=== PATIENT | male | born 1955 | race Caucasian/White ===

== ENCOUNTER 2019-03-13 16:52 | Emergency (ER) | payer OTHER ==
--- OUTSIDE RECORDS SUMMARY | 2019-03-13 16:54 | XMS REPORT | Clinical Summary ---
:1955 Author Organization [facility] Address [address] [place] [address] Care Team Providers Name Role Phone Daniel Garcia MD Primary Care Provider Allergies Active Allergy Reactions Severity Noted Date Comments Penicillins 01/13/2019 As a child Medications Medication Sig Dispensed Refills Start Date End Date Status finasteride 0 03/04/2019 Active (PROSCAR) 5 mg tablet doxazosin (CARDURA) Take 2 mg by 1 01/28/2019 Active 2 MG tablet mouth daily. ciprofloxacin Take 1 tablet 14 tablet 0 03/10/2019 03/17/2019 Active (CIPRO) 500 MG (500 mg tablet total) by mouth 2 (two) times a day for 7 days. multivitamin with Take 1 tablet 0 01/20/2019 Discontinued minerals tablet by mouth daily. turmeric (CURCUMIN 750 mg. 0 01/20/2019 Discontinued MISC) finasteride Take 5 mg by 0 01/20/2019 Discontinued (PROSCAR) 5 mg mouth daily. tablet pantoprazole Take 40 mg by 0 01/20/2019 Discontinued (PROTONIX) 40 MG EC mouth tablet nightly. rivaroxaban Take 20 mg by 0 01/20/2019 Discontinued (XARELTO) 20 mg mouth daily. tablet doxazosin (CARDURA) Take 2 mg by 0 01/20/2019 Discontinued 2 MG tablet mouth nightly. Active Problems Not on file Encounters Date Type Specialty Care Team Description 03/10/2019 Surgery Urology Abhilash Clements, CYSTOSCOPY, HOLMIUM LASER OF BLADDER STONES 03/10/2019 Anesthesia Event Urology Santana Kat, 03/10/2019 Hospital Encounter Urology Ho, Abhilash S., Bladder stone 01/14/2019 Hospital Encounter Radiology Abhilash Clements, Preop testing 01/14/2019 Pre-Admit Testing Pre-Admission Abhilash Clements, Preop testing Appointment Testing MD (Primary Dx) after 03/12/2018 Social History Tobacco Use Types Packs/Day Years Used Date Former Smoker Pipe Smokeless Tobacco: Never Used Comments: in college Alcohol Use Drinks/Week oz/Week Comments No Alcohol Habits Answer Date Recorded How often do you have a drink containing alcohol? Never 01/13/2019 How many drinks containing alcohol do you have on a typical Not asked day when you are drinking? How often do you have six or more drinks on one occasion? Not asked Sex Assigned at Date Recorded Not on file Job Start Date Occupation Industry Not on file Not on file Not on file Travel History Travel Start Travel End No recent travel history available. Last Filed Vital Signs Vital Sign Reading Time Taken Blood Pressure 123/69 03/10/2019 1:53 PM CDT Pulse 67 03/10/2019 1:53 PM CDT Temperature 36.1 C (97 F) 03/10/2019 1:53 PM CDT Respiratory Rate 19 03/10/2019 1:53 PM CDT Oxygen Saturation 97% 03/10/2019 1:53 PM CDT Inhaled Oxygen Concentration - - Weight 112 kg (246 lb) 03/10/2019 10:13 AM CDT Height 190.5 cm (6' 3") 03/10/2019 10:13 AM CDT Body Mass Index 30.75 03/10/2019 10:13 AM CDT Plan of Treatment Health Maintenance Due Date Last Done Comments COLON CANCER SCREENING 2005 SHINGLES VACCINES (#1) 2005 INFLUENZA VACCINE 05/27/2019 Procedures Procedure Name Priority Date/Time Associated Comments Diagnosis SURGICAL PATHOLOGY Routine 03/10/2019 1:32 PM Results for this REQUEST CDT procedure are in the results section. CYSTOSCOPY 03/10/2019 12:00 PM Bladder stone CDT Case Notes REQ 1100 START, HOLMIUM LASER Special Needs REQ 1100 START, HOLMIUM LASER ANESTHESIA INTUBATION Routine 03/10/2019 11:55 AM CDT Procedure Note - Kristina Drake CRNA - 03/10/2019 11:55 AM CDT Airway Performed by: Kristina Drake CRNA Authorized by: Santana Kat DO Location: OR Performed by: anesthesiologist Preoxygenated with 100% O2: Yes C-spine Precautions Maintained Throughout: Yes Mask Ventilation: Not attempted Final Airway Type: Supraglottic airway Final LMA: Classic LMA Size: 5 Number of Attempts at Approach: 1 XR CHEST 2 VW Routine 01/14/2019 4:45 PM Preop testing Results for this CDT procedure are in the results section. ECG PRE/POST OP Routine 01/14/2019 3:52 PM Preop testing Results for this CDT procedure are in the results section. ESTIMATED GFR Routine 01/14/2019 3:41 PM Results for this CDT procedure are in the results section. URINALYSIS SCREEN AND Routine 01/14/2019 3:41 PM Preop testing Results for this MICROSCOPY, WITH REFLEX CDT procedure are in TO CULTURE the results section. HEPATIC FUNCTION PANEL Routine 01/14/2019 3:41 PM Preop testing Results for this CDT procedure are in the results section. PROTHROMBIN TIME WITH Routine 01/14/2019 3:41 PM Preop testing Results for this INR CDT procedure are in the results section. PARTIAL THROMBOPLASTIN Routine 01/14/2019 3:41 PM Preop testing Results for this TIME (PTT) CDT procedure are in the results section. HIV AG/AB COMBINATION Routine 01/14/2019 3:41 PM Preop testing Results for this CDT procedure are in the results section. BASIC METABOLIC PANEL Routine 01/14/2019 3:41 PM Preop testing Results for this CDT procedure are in the results section. CBC HEMOGRAM Routine 01/14/2019 3:41 PM Preop testing Results for this CDT procedure are in the results section. URINE CULTURE Routine 01/14/2019 2:58 PM Results for this CDT procedure are in the results section. after 03/12/2018 Results Surgical pathology request (03/10/2019 1:32 PM CDT) [facility] DEPARTMENT OF PATHOLOGY AND GENOMIC MEDICINE Surgical pathology report See link below for PDF [facility] DEPARTMENT OF Lab Report PATHOLOGY AND GENOMIC MEDICINE Result status This is Final Report [facility] for [id number] PATHOLOGY AND GENOMIC MEDICINE Performing Organization Address City/State/Zipcode Phone Number [facility] DEPARTMENT OF PATHOLOGY AND [address] [place] [address] GENOMIC MEDICINE XR Chest 2 Vw (01/14/2019 4:45 PM CDT) Narrative Performed At EXAMINATION:XR CHEST 2 VW [facility] CLINICAL HISTORY:Z01.818 Encounter for other preprocedural examination, preop COMPARISON:July 29, 2015 IMPRESSION: The heart and mediastinum are normal.The pulmonary vessels are normal.Lung hutchinson are clear.There is a calcified granuloma at the right apex. [id number] Procedure Note Hm Interface, Radiology Results Incoming - 01/14/2019 4:51 PM CDT EXAMINATION: XR CHEST 2 VW CLINICAL HISTORY: Z01.818 Encounter for other preprocedural examination, preop COMPARISON: July 29, 2015 IMPRESSION: The heart and mediastinum are normal. The pulmonary vessels are normal. Lung hutchinson are clear. There is a calcified granuloma at the right apex. [facility]-[id number] Performing Organization Address [facility]/Zipcode Phone Number [facility] [address] [place] [address] ECG Pre/Post Op (01/14/2019 3:52 PM CDT) Ventricular rate 61 [facility] Atrial rate 61 [facility] MO interval 196 [facility] QRSD interval 92 [facility] QT interval 394 [facility] QTC interval 396 [facility] P axis 1 70 [facility] QRS axis 1 82 [facility] T wave axis 48 [facility] EKG impression Normal sinus rhythm-Incomplete right bundle [facility] MUSE branch block-Borderline ECG-In automated comparison with ECG of 26-JUL-2015 14:44,-Vent. rate has decreased BY 51 BPM- Narrative Performed At Performing Organization Address City/[facility] Phone Number [facility] M[facility] [address] [place] [address] Urinalysis screen and microscopy, with reflex to culture (01/14/2019 3:41 PM CDT) Specimen site Clean catch [facility] Color, UA Yellow [facility] Appearance, UA Clear [facility] Specific gravity, UA 1.020 1.001 - 1.035 [facility] pH, UA 6.0 5.0 - 8.5 [facility] Protein, UA 1+ (A) Negative [facility] Glucose, UA Negative Negative [facility] Ketones, UA Negative Negative [facility] Bilirubin, UA Negative Negative [facility] Blood, UA Large (A) Negative [facility] Nitrite, UA Negative Negative [facility] Urobilinogen, UA <2.0 <2.0 [facility] Leukocyte esterase, UA Negative Negative [facility] Epithelial cells, UA <1 /HPF [facility] WBC, UA 4 (H) 0 - 1 /HPF [facility] RBC, UA 180 (H) 0 - 5 /HPF [facility] Bacteria, UA Few None seen [facility] Yeast, UA None seen [facility] Yeast with pseudohyphae, UA None seen [facility] Specimen Urine Performing Organization Address City/[facility] Phone Number [facility] DEPARTMENT OF PATHOLOGY AND [address] [place] [phone] Estimated GFR (01/14/2019 3:41 PM CDT) Estimated GFR 62 mL/min/1.73 m2 [facility] Comment: HOSPITAL CatergoryUnitsInterpretation G1 >=90 Normal or high G2 60-89Mildly decreased [id number] to moderately decreased [id number] to severely decreased G4 15-29Severely decreased G5 <15Kidney failure The eGFR was calculated using the Chronic Kidney Disease Epidemiology Collaboration (CKD-EPI) equation. Interpretation is based on recommendations of the National Kidney Foundation-Kidney Disease Outcomes Quality Initiative (NKF-KDOQI) published in 2014. Specimen Plasma specimen Performing Organization Address City/[facility] Phone Number [facility] DEPARTMENT OF PATHOLOGY AND [address] [place] [phone] HIV Ag/Ab combination (01/14/2019 3:41 PM CDT) HIV Ag/Ab combination Non-reactive Non-reactive [facility] Specimen Blood Performing Organization Address City/[facility] Phone Number [facility] DEPARTMENT OF PATHOLOGY AND [address] [place] [id number] [place] [phone] Partial thromboplastin time, activated (01/14/2019 3:41 PM CDT) PTT 34.9 23.0 - 36.0 sec [facility] Comment: PTT therapeutic range for unfractionated heparin is 61.0-112.0 seconds which corresponds to Anti-Xa 0.3-0.7 U/ml. Specimen Blood Performing Organization Address City/[facility] Phone Number [facility] DEPARTMENT OF PATHOLOGY AND [address] [place] [address] Prothrombin time with INR (01/14/2019 3:41 PM CDT) Prothrombin time 17.7 (H) 11.5 - 14.5 sec [facility] INR 1.5 [facility] Comment: HOSPITAL The International Normalized Ratio (INR) is a therapeutic monitoring tool for patients who are stable on oral anticoagulant therapy. An INR of 2.0-3.0 is suggested for deep vein thrombosis/pulmonary embolism. Specimen Blood Performing Organization Address [facility] Phone Number [facility] DEPARTMENT OF PATHOLOGY AND [address] [place] [phone] CBC hemogram (01/14/2019 3:41 PM CDT) WBC 6.25 4.50 - 11.00 k/uL [facility] RBC 4.59 4.40 - 6.00 m/uL [facility] HGB 14.4 14.0 - 18.0 g/dL [facility] HCT 44.8 41.0 - 51.0 % [facility] MCV 97.6 82.0 - 100.0 fL [facility] MCH 31.4 27.0 - 34.0 pg [facility] MCHC 32.1 31.0 - 37.0 g/dL [facility] RDW - SD 48.9 37.0 - 55.0 fL [facility] MPV 10.7 8.8 - 13.2 fL [facility] Platelet count 195 150 - 400 k/uL [facility] Nucleated RBC 0.00 /100 WBC [facility] Specimen Blood Performing Organization Address City/[facility] Phone Number [facility] DEPARTMENT OF PATHOLOGY AND [address] [place] [address] [place] [address] Hepatic function panel (01/14/2019 3:41 PM CDT) Albumin 4.1 3.5 - 5.0 g/dL [facility] Total bilirubin 0.3 0.0 - 1.2 mg/dL [facility] Bilirubin direct <0.2 0.0 - 0.3 mg/dL [facility] Alkaline phosphatase 72 40 - 129 U/L [facility] Protein 7.2 6.3 - 8.3 g/dL [facility] Comment: [place] 4.6-7.0 g/dL 1 week 4.4-7.6 g/dL 7 months-1year5.1-7.3 g/dL 1-2 years5.6-7.5 g/dL >3 years6.0-8.0 g/dL 18-150 6.3-8.3 g/dL ALT 22 5 - 50 U/L [facility] AST 24 10 - 50 U/L [facility] Specimen Plasma specimen Performing Organization Address City/[facility] Phone Number [facility] DEPARTMENT OF PATHOLOGY AND [address] [place], [place] [phone] [address] [address] Basic metabolic panel (01/14/2019 3:41 PM CDT) Sodium 143 135 - 148 mEq/L [facility] Potassium 3.9 3.5 - 5.0 mEq/L [facility] Chloride 106 98 - 112 mEq/L [facility] CO2 26 24 - 31 mEq/L [facility] Anion gap 11@ANIO 7 - 15 mEq/L [facility] BUN 18 8 - 23 mg/dL [facility] Creatinine 1.23 (H) 0.70 - 1.20 mg/dL [facility] Glucose 86 65 - 99 mg/dL [facility] Calcium 9.4 8.8 - 10.2 mg/dL [facility] Specimen Plasma specimen Performing Organization Address City/[facility] Phone Number [facility] DEPARTMENT OF PATHOLOGY AND [address] [place], [place] [phone] [address] [address] Urine culture (01/14/2019 2:58 PM CDT) Urine culture SEE COMMENTComment: Bacteriuria [facility] screen negative. Performing Organization Address City/State/Zipcode Phone Number [facility] DEPARTMENT OF PATHOLOGY AND [address] [place] [address] GENOMIC MEDICINE [facility] [address] [place] [address] after 03/12/2018 Insurance Payer Benefit Plan / Group Subscriber ID Type Phone Address AETNA AETNA HMO,POS,EPO, MC/EC xxxxxxxxxx HMO ([place]) [place] [address] Advance Directives Patient has advance care planning documents on file. For more information, please contact:[facility] [place] [phone]
--- NOTE | 2019-03-13 17:30 | ER ---
Nurse's Notes [facility] Name: Sin Tim Age: 64 yrs Sex: Male : 1955 Arrival Date: 03/13/2019 Time: 16:55 Bed 28 Private MD: Diagnosis: Retention of urine Presentation: 03/13 17:04 Presenting complaint: Patient states: He had a procedure to remove bladder stones on Friday at [facility], was urinating fine until today, has not been able to urinate, spoke with his PCP and surgeon who recommend he go to [facility] but the pt reports not wanting to drive there so he came here. Transition of care: patient was not received from another setting of care. Onset of symptoms was March 13, 2019. Risk Assessment: Do you want to hurt yourself or someone else? Patient reports no desire to harm self or others. Initial Sepsis Screen: Does the patient meet any 2 criteria? No. Patient's initial sepsis screen is negative. Does the patient have a suspected source of infection? No. Patient's initial sepsis screen is negative. Care prior to arrival: None. 17:04 Method Of Arrival: Ambulatory 17:04 Acuity: OBDULIA 3 sg Historical: - Allergies: 17:09 PENICILLINS; sg - PMHx: 17:09 Diverticulitis; Enlarged Prostate; sg - PSHx: 17:09 Uroliths Removed; Flakito Holes in Head x 4; Appendectomy; sg - Immunization history:: Adult Immunizations up to date. - Social history:: Smoking status: Patient/guardian denies using tobacco. - Ebola Screening: : Patient negative for fever greater than or equal to 101.5 degrees Fahrenheit, and additional compatible Ebola Virus Disease symptoms Patient denies exposure to infectious person Patient denies travel to an Ebola-affected area in the 21 days before illness onset No symptoms or risks identified at this time. Screenin:31 Abuse screen: Denies threats or abuse. Denies injuries from another. Nutritional rv screening: No deficits noted. Tuberculosis screening: No symptoms or risk factors identified. Fall Risk None identified. Assessment: 17:30 General: Appears in no apparent distress. uncomfortable, Behavior is calm, cooperative. rv Pain: Denies pain. Neuro: Level of Consciousness is awake, alert, obeys commands, Oriented to person, place, time, situation. Cardiovascular: Patient's skin is warm and dry. Respiratory: Airway is patent. GI: No signs and/or symptoms were reported involving the gastrointestinal system. : Reports incontinence, since LAST NIGHT inability to void, since LAST NIGHT. EENT: No signs and/or symptoms were reported regarding the EENT system. Derm: Skin is intact. Musculoskeletal: No signs and/or symptoms reported regarding the musculoskeletal system. Vital Signs: 17:09 BP 173 / 97; Pulse 79; Resp 17; Temp 97.8; Pulse Ox 97% on R/A; Weight 113.4 kg; Pain sg 8/10; 17:39 BP 123 / 80; Pulse 76; Resp 17; Pulse Ox 98% ; rv ED Course: 16:55 Patient arrived in ED. tw3 16:56 Reji Schmid MD is Attending Physician. 17:02 Logan Chacon RN is Primary Nurse. rv 17:06 Triage completed. sg 17:06 Arm band placed on. sg 17:31 Patient has correct armband on for positive identification. Bed in low position. Call rv light in reach. Side rails up X 1. Adult w/ patient. Pulse ox on. NIBP on. 17:32 No provider procedures requiring assistance completed. Sousa cath inserted, using rv sterile technique, 16 Fr., by ca, balloon inflated, to gravity drainage, returned WITH FRAGMENTS (STONE). Patient tolerated well. Patient did not have IV access during this emergency room visit. Administered Medications: No medications were administered Output: 17:40 Urine: 1000ml (Sousa); Total: 1000ml. rv Outcome: 17:29 Discharge ordered by . 17:33 Discharged to home ambulatory. rv 17:33 Discharged to DISCHARGED WITH SOUSA CATHETER F16 17:33 Condition: improved 17:33 Discharge instructions given to patient, family, Instructed on discharge instructions, follow up and referral plans. [facility] Demonstrated understanding of instructions, follow-up care, [facility] 17:40 Patient left the ED. rv Signatures: John Dexter, RN RN Amilcar, Tia tw3 Reji Schmid MD MD Logan Chacon RN RN rv
--- NOTE | 2019-03-13 17:30 | EDPHYS ---
Physician Documentation [facility] Name: Sin Tim Age: 64 yrs Sex: Male : 1955 Arrival Date: 03/13/2019 Time: 16:55 Bed 28 Private MD: ED Physician Reji Schmid HPI: 03/13 17:23 This 64 yrs old Male presents to ER via Ambulatory with complaints of Urinary gs Retention. 17:23 The patient presents with urinary symptoms, retention, unable to void. Onset: The gs symptoms/episode began/occurred today. Modifying factors: The symptoms are alleviated by nothing, the symptoms are aggravated by nothing. Associated signs and symptoms: Pertinent negatives: fever. Severity of symptoms: At their worst the symptoms were severe, in the emergency department the symptoms are unchanged. The patient has experienced similar episodes in the past, a few times. The patient has been recently seen by a physician:. Historical: - Allergies: 17:09 PENICILLINS; sg - PMHx: 17:09 Diverticulitis; Enlarged Prostate; sg - PSHx: 17:09 Uroliths Removed; Flakito Holes in Head x 4; Appendectomy; sg - Immunization history:: Adult Immunizations up to date. - Social history:: Smoking status: Patient/guardian denies using tobacco. - Ebola Screening: : Patient negative for fever greater than or equal to 101.5 degrees Fahrenheit, and additional compatible Ebola Virus Disease symptoms Patient denies exposure to infectious person Patient denies travel to an Ebola-affected area in the 21 days before illness onset No symptoms or risks identified at this time. ROS: 17:23 All other systems are negative. gs Exam: 17:23 Head/Face: Normocephalic, atraumatic. Eyes: Pupils equal round and reactive to light, gs extra-ocular motions intact. Lids and lashes normal. Conjunctiva and sclera are non-icteric and not injected. Cornea within normal limits. Periorbital areas with no swelling, redness, or edema. ENT: Nares patent. No nasal discharge, no septal abnormalities noted. Tympanic membranes are normal and external auditory canals are clear. Oropharynx with no redness, swelling, or masses, exudates, or evidence of obstruction, uvula midline. Mucous membranes moist. Neck: Trachea midline, no thyromegaly or masses palpated, and no cervical lymphadenopathy. Supple, full range of motion without nuchal rigidity, or vertebral point tenderness. No Meningismus. Chest/axilla: Normal chest wall appearance and motion. Nontender with no deformity. No lesions are appreciated. Cardiovascular: Regular rate and rhythm with a normal S1 and S2. No gallops, murmurs, or rubs. Normal PMI, no JVD. No pulse deficits. Respiratory: Lungs have equal breath sounds bilaterally, clear to auscultation and percussion. No rales, rhonchi or wheezes noted. No increased work of breathing, no retractions or nasal flaring. Back: No spinal tenderness. No costovertebral tenderness. Full range of motion. Skin: Warm, dry with normal turgor. Normal color with no rashes, no lesions, and no evidence of cellulitis. MS/ Extremity: Pulses equal, no cyanosis. Neurovascular intact. Full, normal range of motion. Neuro: Awake and alert, GCS 15, oriented to person, place, time, and situation. Cranial nerves II-XII grossly intact. Motor strength 5/5 in all extremities. Sensory grossly intact. Cerebellar exam normal. Normal gait. 17:23 Constitutional: The patient appears alert, awake. 17:23 Abdomen/GI: Palpation: mass, that is tender, bldder. Vital Signs: 17:09 BP 173 / 97; Pulse 79; Resp 17; Temp 97.8; Pulse Ox 97% on R/A; Weight 113.4 kg; Pain sg 8/10; 17:39 BP 123 / 80; Pulse 76; Resp 17; Pulse Ox 98% ; rv MDM: 17:02 Patient medically screened. gs 17:23 Differential diagnosis: urinary retention. Data reviewed: vital signs, nurses notes. gs Response to treatment: the patient's symptoms have markedly improved after treatment. 03/13 17:03 Order name: [place]; Complete Time: 17:22 gs Administered Medications: No medications were administered Disposition: 03/13/19 17:29 Discharged to Home. Impression: Retention of urine. - Condition is Stable. - Discharge Instructions: Acute Urinary Retention, Male, Avila Catheter Care, Adult, [id number]. - Medication Reconciliation Form, Thank You Letter, Antibiotic Education, Prescription Opioid Use form. - Follow up: Private Physician; When: 2 - 3 days; Reason: Re-evaluation by your physician. Signatures: John Dexter RN RN sg Reji Schmid MD MD gs Logan Chacon RN RN rv Corrections: (The following items were deleted from the chart) 17:40 17:29 03/13/2019 17:29 Discharged to Home. Impression: Retention of urine. Condition is rv Stable. Forms are Medication Reconciliation Form, Thank You Letter, Antibiotic Education, Prescription Opioid Use. Follow up: Private Physician; When: 2 - 3 days; Reason: Re-evaluation by your physician. michael
== END 2019-03-13 17:40 | disposition home or self-care (01) ==
LOC: ER 16:52
DX: R33.9 Retention of urine, unspecified (principal); Z88.0 Allergy status to penicillin
CPT/HCPCS: 51702; 99284

== ENCOUNTER 2024-08-17 09:02 | Day surgery (SDC) | payer OTHER ==
[2024-08-17 09:32] LABS: Absolute Basophils 0.1 K/uL (0-0.5); Absolute Eosinophils 0.2 K/uL (0-0.5); Absolute Lymphocytes (CBC) 1.3 K/uL (0.7-4.9); Absolute Monocytes 0.5 K/uL (0.1-1.3); Absolute Neutrophil 4.9 K/uL (1.8-8.0); Basophils % 1.1 % (0-1.3); Eosinophils % 3.1 % (0-4.4); Hematocrit 42.1 % (39.6-49.0); Hemoglobin 14.2 g/dL (13.6-17.9); Lymphocytes % 18.3 % (15.3-44.8); MCHC 33.7 g/dL (32.0-36.0); MCV 97.9 fL (80-100); MPV 8.6 fL (7.6-11.3); Monocytes % 7.8 % (3.3-12.3); Neutrophils % 69.7 % (41.7-73.7); Nucleated Red Blood Cells % 0.1 % (0-0); Platelets 199 thou/uL (152-406); Red Cell Distribution Width 13.5 % (12.1-15.2)
[2024-08-17 09:45] VITALS: BMI 26.6
[2024-08-17 09:52] LABS: Albumin 3.5 g/dL (3.4-5.0); Albumin/Globulin Ratio 1.1 (1.1-1.8); Anion Gap 7.1 mEq/L (5.0-15.0); Bilirubin Direct 0.2 mg/dL (0-0.2); Bilirubin Indirect, Calculated 0.5 mg/dL (0.2-0.8); Bilirubin Total 0.7 mg/dL (0.2-1.0); Globulin 3.2 g/dL (2.3-3.5); Potassium 4.1 mEq/L (3.5-5.1); Protein, Total 6.7 g/dL (6.4-8.2)
[2024-08-17 10:00] LABS: PT Prothrombin Time 11.6 SECONDS (9.4-12.5); PTT, Activated Partial Thromb 28.4 SECONDS (24.3-36.9); Protime INR 1.04
--- NOTE | 2024-08-17 12:44 | RAD REPORT ---
PROCEDURE: FLUOROSCOPY GUIDED LUMBAR PUNCTURE CLINICAL INDICATION: F03.90, E55.9, D51.9, I62.03 COMPLICATIONS: No immediate complications. PROCEDURE DETAILS: Consent: Informed consent for the procedure including risks, benefits and alternatives was obtained a nd time-out was performed prior to the procedure. Preparation: The patient was positioned prone on the fluoroscopic table. Appropriate area of the back was prepared and draped using all elements of maximal sterile barrier technique including sterile gloves, sterile gown, cap, mask, large sterile sheet, hand hygiene and cutaneous antisepsis with 2% c hlorhexidine. Sedation: No sedation Imaging prior to procedure: 2 views lumbar spine. Procedure: Local anesthesia was administered. Under fluoroscopic guidance, a spinal needle was advanc ed into the subarachnoid space at the level of L3-4. Fluid obtained: 15 cc of clear CSF Opening pressure: Subjectively normal. Fluoroscopy time: 0.4 minutes Estimated blood loss: Less than 10 mL. IMPRESSION: Technically successful fluoroscopic-guided lumbar puncture as detailed.
[2024-08-17 13:02] LABS: CSF Glucose 56 mg/dL (40-70)
[2024-08-17 13:21] LABS: Appearance CLEAR (CLEAR); Body Fluid Source CSF; Body Fluid WBC 0 /mm^3; Color of Supernate Not Xanthochromic (Not Xantho); Color of fluid Colorless (COLORLESS); Tube # #4
[2024-08-17 14:05] VITALS: BP 126/79; TEMP 97.2; O2SAT 100
== END 2024-08-17 13:52 | disposition home or self-care (01) ==
LOC: DS 09:02
PROVIDERS: ATTEND Psychiatry & Neurology Neurology with Special Qualifications in Child Neurology
PROC: 009U3ZX Drainage of Spinal Canal, Percutaneous Approach, Diagnostic (ICD-10-PCS; principal; 2024-08-17)
PROC: B01BZZZ Fluoroscopy of Spinal Cord (ICD-10-PCS; 2024-08-17)
DX: G30.9 Alzheimer's disease, unspecified (principal); R41.3 Other amnesia; E55.9 Vitamin D deficiency, unspecified; D51.9 Vitamin B12 deficiency anemia, unspecified; I62.03 Nontraumatic chronic subdural hemorrhage
CPT/HCPCS: 36415; 77003; 80048; 80076; 82542; 82945; 84157; 85025; 85610; 85730; 89050

== ENCOUNTER 2024-08-18 09:23 | Inpatient (IN) | payer OTHER ==
[2024-08-18] MEDS ORDERED: NA CHLORIDE 0.9% 1,000 ML ONE (09:57)
[2024-08-18 10:19] LABS: Absolute Eosinophils 0.1 K/uL (0-0.5); Absolute Monocytes 0.6 K/uL (0.1-1.3); Absolute Neutrophil 6.9 K/uL (1.8-8.0); Basophils % 0.5 % (0-1.3); Eosinophils % 1.5 % (0-4.4); Hematocrit 46.2 % (39.6-49.0); Hemoglobin 15.1 g/dL (13.6-17.9); Lymphocytes % 11.9 % (15.3-44.8); MCH 32.5 pg (27.0-35.0); MCHC 32.7 g/dL (32.0-36.0); MCV 99.4 fL (80-100); MPV 9.1 fL (7.6-11.3); Monocytes % 7.2 % (3.3-12.3); Neutrophils % 78.9 % (41.7-73.7); Platelets 202 thou/uL (152-406); RBC Red Blood Cell Count 4.65 M/uL (4.33-5.43); Red Cell Distribution Width 13.5 % (12.1-15.2)
[2024-08-18 10:42] LABS: ALT/SGPT 19 U/L (16-61); AST/SGOT 17 U/L (15-37); Albumin 3.5 g/dL (3.4-5.0); Alkaline Phosphatase 79 U/L (45-117); Anion Gap 11.8 mEq/L (5.0-15.0); BUN Blood Urea Nitrogen 21 mg/dL (7-18); Bicarbonate 22 mEq/L (21-32); Bilirubin Total 0.6 mg/dL (0.2-1.0); Globulin 3.5 g/dL (2.3-3.5); Glomerular Filtration Rate 62 ml/min (=/>90); Glucose Level 132 mg/dL (74-106); Lipase 27 U/L (13-75); Magnesium 2.1 mg/dL (1.6-2.4); NT PRO-BNP 669 pg/mL (<125); Potassium 3.8 mEq/L (3.5-5.1); Sodium Level 142 mEq/L (136-145); Troponin High Sensitivity 23.4 pg/mL (<58.9)
[2024-08-18 10:47] LABS: Bilirubin Direct < 0.2 mg/dL (0-0.2); Bilirubin Indirect, Calculated 0.4 mg/dL (0.2-0.8)
--- NOTE | 2024-08-18 10:55 | RAD REPORT ---
EXAM: CT brain without contrast HISTORY: Dizziness;Pain COMPARISON: None TECHNIQUE: Multiple contiguous axial images were obtained and a CT of the brain without contrast. Sag ittal and coronal reformats were performed. FINDINGS:No evidence of hydrocephalus, intracranial hemorrhage, or extra-axial fluid collection. The brain is normal in morphology. The calvarium is intact. The visualized paranasal sinuses and mastoid air cells are essentially clear . IMPRESSION: No evidence of acute intracranial abnormality. EXAM: CT of the cervical spine without contrast HISTORY: Dizziness;Pain COMPARISON: None TECHNIQUE: Multiple contiguous axial images were obtained in a CT of the cervical spine without contr ast. Sagittal and coronal reformats were performed. FINDINGS: The vertebral bodies demonstrate normal height and alignment. No evidence of acute fracture or subluxation.. Up to moderate degenerative changes with uncovertebral joint and facet arthropathy contributing to moderate bony neural foraminal narrowing on the left at C3-4 and C4-5, an d on the right at C5-6. No significant bony central canal stenosis. No prevertebral soft tissue swelling is seen. The posterior facets are well aligned. Normal alignment of the skull base with the cervical spine is seen. 9 mm right apical calcified granuloma. IMPRESSION: No evidence of acute osseous abnormality of the cervical spine. Degenerative changes as above.
--- NOTE | 2024-08-18 11:12 | RAD REPORT ---
EXAMINATION: ONE VIEW CHEST XR CLINICAL INDICATION: Male, 69 years old.,PAIN TECHNIQUE: Frontal chest projection is submitted. Examination is limited by patient positioning and t echnique. COMPARISON: No prior exam. FINDINGS: The lungs are well inflated and clear. No pneumothorax or sizable effusion. The heart is normal in s ize. IMPRESSION: No acute intrathoracic abnormalities.
[2024-08-18 12:01] LABS: PT Prothrombin Time 12.4 SECONDS (9.4-12.5); Protime INR 1.11
--- NOTE | 2024-08-18 13:43 | ER ---
Nurse's Notes [facility] Name: Sin Tim Age: 69 yrs Sex: Male : 1955 Arrival Date: 08/18/2024 Time: : Bed 3 Private MD: Diagnosis: Dizziness and giddiness;Paroxysmal atrial fibrillation-with RVR;Dementia in other diseases classified elsewhere without behavioral disturbance Presentation: 08/18 09:33 Chief complaint: Spouse and/or significant other states: LP done yesterday per Dr. lety Multani , was being tested for Alzheimer's, this morning he was really dizzy and he fell in the shower. 09:33 Acuity: OBDULIA 3 iw 09:34 Coronavirus screen: At this time, the client does not indicate any symptoms associated iw with coronavirus-19. Ebola Screen: No symptoms or risks identified at this time. Initial Sepsis Screen: Does the patient meet any 2 criteria? No. Patient's initial sepsis screen is negative. Does the patient have a suspected source of infection? No. Patient's initial sepsis screen is negative. Risk Assessment: Do you want to hurt yourself or someone else? Patient reports no desire to harm self or others. Onset of symptoms was August 18, 2024. 09:34 Method Of Arrival: Wheelchair iw Historical: - Allergies: 09:35 PENICILLINS; iw - Home Meds: 09:35 finasteride 5 mg oral tablet daily [Active]; fluorouracil 5 % topical cream weekly iw [Active]; donepezil 10 mg oral tablet daily [Active]; - PMHx: 09:35 Diverticulitis; enlarged prostate; iw - Immunization history:: Adult Immunizations up to date. - Infectious Disease History:: Denies. - Social history:: Smoking status: . - Family history:: not pertinent. Screenin:21 [facility] ED Fall Risk Assessment (Adult) History of falling in the last 3 months, hb including since admission No falls in past 3 months (0 pts) Confusion or Disorientation No (0 pts) Intoxicated or Sedated No (0 pts) Impaired Gait No (0 pts) Mobility Assist Device Used No (0 pt) Altered Elimination No (0 pt) Score/Fall Risk Level 0 - 2 = Low Risk Oriented to surroundings, Maintained a safe environment, Educated pt \T\ family on fall prevention, incl call for assistance when getting out of bed. Abuse screen: Denies threats or abuse. Denies injuries from another. Nutritional screening: No deficits noted. Tuberculosis screening: No symptoms or risk factors identified. Assessment: 10:21 General: Appears in no apparent distress. Behavior is calm, cooperative. Pain: Pain hb currently is 5 out of 10 on a pain scale. Neuro: Level of Consciousness is awake, alert, confused, Oriented to person, place, situation. Cardiovascular: Patient's skin is warm and dry. Respiratory: Respiratory effort is even, unlabored, Respiratory pattern is regular, symmetrical. GI: No signs and/or symptoms were reported involving the gastrointestinal system. : No signs and/or symptoms were reported regarding the genitourinary system. EENT: No signs and/or symptoms were reported regarding the EENT system. Derm: Skin is pink, warm \T\ dry. Musculoskeletal: No signs and/or symptoms reported regarding the musculoskeletal system. 11:17 Reassessment: Patient appears in no apparent distress at this time. Patient and/or hb family updated on plan of care and expected duration. Pain level reassessed. Patient is alert, oriented x 3, equal unlabored respirations, skin warm/dry/pink. Patient states symptoms have improved. 11:31 Reassessment: PHLEBOTOMY CONTACTED FOR COAG REDRAW. bp 12:30 Reassessment: Patient appears in no apparent distress at this time. Patient and/or hb family updated on plan of care and expected duration. Pain level reassessed. Patient is alert, oriented x 3, equal unlabored respirations, skin warm/dry/pink. 13:30 Reassessment: Patient appears in no apparent distress at this time. Patient and/or hb family updated on plan of care and expected duration. Pain level reassessed. Patient is alert, oriented x 3, equal unlabored respirations, skin warm/dry/pink. 14:33 Reassessment: Patient appears in no apparent distress at this time. Patient and/or hb family updated on plan of care and expected duration. Pain level reassessed. Patient is alert, oriented x 3, equal unlabored respirations, skin warm/dry/pink. 14:37 Reassessment: REPORT FAXED FOR 401. bp Vital Signs: 09:34 BP 101 / 87; Pulse 67; Resp 16; Temp 97; Pulse Ox 96% ; Weight 96.62 kg; Height 6 ft. 3 iw in. ; 11:16 BP 93 / 69; Pulse 68; Resp 16; Pulse Ox 99% on R/A; hb 13:00 BP 105 / 71; Pulse 67; Resp 15; Pulse Ox 97% on R/A; hb 14:30 BP 111 / 80; Pulse 75; Resp 17; Pulse Ox 95% on R/A; Pain 0/10; hb 09:34 Body Mass Index 26.62 (96.62 kg, 190.5 cm) iw 14:30 Pain Scale: Adult hb ED Course: 09:25 Patient arrived in ED. mr 09:32 Chris Tello MD is Attending Physician. kathrin 09:34 Triage completed. iw 09:37 Arm band placed on. iw 09:40 Client placed on continuous cardiac and pulse oximetry monitoring. NIBP monitoring hb applied. cat dog or other pet groomer on. Pulse ox on. NIBP on. 09:53 CT Head C Spine In Process Unspecified. EDMS 09:55 Mary Mota, ENOCH is Primary Nurse. hb 09:57 XRAY Chest (1 view) In Process Unspecified. EDMS 10:15 Initial lab(s) drawn, by tx, sent to lab. Inserted saline lock: 22 gauge in left hb forearm, using aseptic technique. Blood collected. Flushed with 10 mL NS. 10:21 Patient has correct armband on for positive identification. Provided Education on: use hb of call light . 11:15 EKG done, by ED staff, reviewed by Chris Tello MD. hb 13:28 Urinalysis w/ reflexes Sent. hb 13:41 Dolores Wyatt MD is Hospitalizing Provider. kathrin 14:22 Inserted saline lock: 22 gauge in left forearm, using aseptic technique. Flushed with bp 10 mL NS. 14:37 No provider procedures requiring assistance completed. Patient admitted, IV remains in bp place. 15:01 1501 CM met with and his Malaika at the bedside in the ED exam room. Patient ane identified by name and . Demographic sheet confirmed. Patient states he lives with his in a single story home. He reports that prior to admission, he performs ADLs independently. No DME in the home and no HH, no home oxygen or other medical services. No MPOA in place at this time. Patient's PCP is Dr. Daniel Garcia. Preferred plan is for to return home upon discharge and Malaika states she will be his transportation home. CM team will continue to follow and coordinate care during this hospital stay. Administered Medications: 10:24 Drug: NS 0.9% IV 1000 ml IV at 1 bolus Per protocol; to be given as a bolus over 60 hb minutes Route: IV; Rate: 1 bolus; Site: left forearm; 11:53 Follow up: Response: No adverse reaction; IV Status: Completed infusion; IV Intake: hb 1000ml 14:35 Drug: Enoxaparin Sub-Q 1 mg/kg Sub-Q once Route: Sub-Q; Site: abdomen; hb 14:35 Drug: Famotidine IVP 20 mg IVP once; dilute with 10 mL 0.9% NaCl; give over 2 minutes hb Route: IVP; Site: right forearm; Medication: 10:21 VIS not applicable for this client. hb Intake: 11:53 IV: 1000ml; Total: 1000ml. hb Outcome: 13:42 Decision to Hospitalize by Provider. kathrin 15:23 Patient left the ED. hb Signatures: Dispatcher [employer] EDAZ Chris Tello MD MD cha Rivera, Mary, Reg Reg mr Susan Meehan RN RN iw Baxter, Heather, ENOCH RN Thien Henley, Roz Infante RN, RN RN ling
--- NOTE | 2024-08-18 13:43 | EDPHYS ---
Physician Documentation [facility] Name: Sin Tim Age: 69 yrs Sex: Male : 1955 Arrival Date: 08/18/2024 Time: : Bed 3 Private MD: ED Physician Chris Tello HPI: 08/18 13:35 This 69 yrs old Male presents to ER via Wheelchair with complaints of Dizziness, Fall kathrin Injury. 13:35 The patient presents with dizziness, generalized weakness, lightheadedness. Onset: The kathrin symptoms/episode began/occurred just prior to arrival, this morning. Context: occurred at home, occurred while the patient was walking. Modifying factors: The symptoms are alleviated by nothing, the symptoms are aggravated by nothing. Associated signs and symptoms: The patient has no apparent associated signs or symptoms. Severity of symptoms: At their worst the symptoms were mild moderate in the emergency department the symptoms have improved moderately. Patient's baseline: Neuro: alert and fully oriented. The patient has not experienced similar symptoms in the past. Historical: - Allergies: 09:35 PENICILLINS; iw - Home Meds: 09:35 finasteride 5 mg oral tablet daily [Active]; fluorouracil 5 % topical cream weekly iw [Active]; donepezil 10 mg oral tablet daily [Active]; - PMHx: 09:35 Diverticulitis; enlarged prostate; iw - Immunization history:: Adult Immunizations up to date. - Infectious Disease History:: Denies. - Social history:: Smoking status: . - Family history:: not pertinent. ROS: 13:35 Constitutional: Negative for fever, chills, and weight loss, Eyes: Negative for injury, kathrin pain, redness, and discharge, ENT: Negative for injury, pain, and discharge, Neck: Negative for injury, pain, and swelling, Respiratory: Negative for shortness of breath, cough, wheezing, and pleuritic chest pain, Abdomen/GI: Negative for abdominal pain, nausea, vomiting, diarrhea, and constipation, Back: Negative for injury and pain, : Negative for injury, bleeding, discharge, and swelling, MS/Extremity: Negative for injury and deformity, Skin: Negative for injury, rash, and discoloration, Neuro: Negative for headache, weakness, numbness, tingling, and seizure, Psych: Negative for depression, anxiety, suicide ideation, homicidal ideation, and hallucinations, Allergy/Immunology: Negative for hives, rash, and allergies, Endocrine: Negative for neck swelling, polydipsia, polyuria, polyphagia, and marked weight changes, Hematologic/Lymphatic: Negative for swollen nodes, abnormal bleeding, and unusual bruising, 13:35 Cardiovascular: Positive for palpitations, 13:35 Neuro: Positive for dizziness, Exam: 13:35 Constitutional: This is a well developed, well nourished patient who is awake, alert, kathrin and in no acute distress. Head/Face: Normocephalic, atraumatic. Eyes: Pupils equal round and reactive to light, extra-ocular motions intact. Lids and lashes normal. Conjunctiva and sclera are non-icteric and not injected. Cornea within normal limits. Periorbital areas with no swelling, redness, or edema. ENT: Nares patent. No nasal discharge, no septal abnormalities noted. Tympanic membranes are normal and external auditory canals are clear. Oropharynx with no redness, swelling, or masses, exudates, or evidence of obstruction, uvula midline. Mucous membranes moist. Neck: Trachea midline, no thyromegaly or masses palpated, and no cervical lymphadenopathy. Supple, full range of motion without nuchal rigidity, or vertebral point tenderness. No Meningismus. Chest/axilla: Normal chest wall appearance and motion. Nontender with no deformity. No lesions are appreciated. Respiratory: Lungs have equal breath sounds bilaterally, clear to auscultation and percussion. No rales, rhonchi or wheezes noted. No increased work of breathing, no retractions or nasal flaring. Abdomen/GI: Soft, non-tender, with normal bowel sounds. No distension or tympany. No guarding or rebound. No evidence of tenderness throughout. Back: No spinal tenderness. No costovertebral tenderness. Full range of motion. Male : Normal genitalia with no discharge or lesions. Skin: Warm, dry with normal turgor. Normal color with no rashes, no lesions, and no evidence of cellulitis. MS/ Extremity: Pulses equal, no cyanosis. Neurovascular intact. Full, normal range of motion. Neuro: Awake and alert, GCS 15, oriented to person, place, time, and situation. Cranial nerves II-XII grossly intact. Motor strength 5/5 in all extremities. Sensory grossly intact. Cerebellar exam normal. Normal gait. Psych: Awake, alert, with orientation to person, place and time. Behavior, mood, and affect are within normal limits. 13:35 Cardiovascular: Rate: tachycardic, actual rate is 111 bpm, Rhythm: irregularly irregular, Pulses: Pulses are 4+ in bilateral radial, brachial, femoral, popliteal, posterior tibial and and dorsalis pedis arteries.. Heart sounds: normal, Edema: is not appreciated, JVD: is not appreciated, 13:35 ECG was reviewed by the Attending Physician. Vital Signs: 09:34 BP 101 / 87; Pulse 67; Resp 16; Temp 97; Pulse Ox 96% ; Weight 96.62 kg; Height 6 ft. 3 iw in. ; 11:16 BP 93 / 69; Pulse 68; Resp 16; Pulse Ox 99% on R/A; hb 13:00 BP 105 / 71; Pulse 67; Resp 15; Pulse Ox 97% on R/A; hb 14:30 BP 111 / 80; Pulse 75; Resp 17; Pulse Ox 95% on R/A; Pain 0/10; hb 09:34 Body Mass Index 26.62 (96.62 kg, 190.5 cm) iw 14:30 Pain Scale: Adult hb MDM: 09:32 Medical Screening Exam initiated kathrin 13:38 Differential diagnosis: cardiac arrhythmia, CVA, generalized weakness, GI bleed, kathrin hypovolemia, idiopathic dizziness, near-syncope, , TIA, vertigo. Data reviewed: vital signs, nurses notes, lab test result(s), EKG, radiologic studies, CT scan, plain films. Consideration of Admission/Observation Patient was admitted/placed on observation. Escalation of care including admission/observation considered. I considered the following discharge prescriptions or medication management in the emergency department Medications were administered in the Emergency Department. See MAR. Independent interpretation of the following test(s) in the Emergency Department EKG: See my EKG interpretation above. Test considered but Not performed: Ultrasound no 2 d echo with doppler. Historians other than the Patient: Spouse/Significant Other: well informed. Care significantly affected by the following chronic conditions: bph, diverticulitis, dementia. 08/18 09:33 Order name: Basic Metabolic Panel; Complete Time: 11:20 kathrin 08/18 09:33 Order name: CBC with Diff; Complete Time: 11:20 kathrin 08/18 09:33 Order name: LFT's; Complete Time: 11:20 08/18 09:33 Order name: Magnesium; Complete Time: 11:20 08/18 09:33 Order name: NT PRO-BNP; Complete Time: 11:20 kathrin 08/18 09:33 Order name: PT-INR; Complete Time: 13:34 08/18 09:33 Order name: Troponin HS; Complete Time: 11:20 08/18 09:33 Order name: Urinalysis w/ reflexes kathrin 08/18 09:33 Order name: Lipase; Complete Time: 11:20 kathrin 08/18 11:20 Order name: TSH; Complete Time: 13:34 kathrin 08/18 14:02 Order name: Urine Culture EDMS 08/18 14:22 Order name: CBC with Automated Diff EDMS 08/18 14:22 Order name: CBC with Automated Diff EDMS 08/18 14:22 Order name: CBC with Automated Diff EDMS 08/18 14:22 Order name: CBC with Automated Diff EDMS 08/18 14:22 Order name: Comprehensive Metabolic Panel EDMS 08/18 14:22 Order name: Comprehensive Metabolic Panel EDMS 08/18 14:22 Order name: Comprehensive Metabolic Panel EDMS 08/18 14:22 Order name: Comprehensive Metabolic Panel EDMS 08/18 14:22 Order name: Lipid Profile EDMS 08/18 14:22 Order name: Lipid Profile EDMS 08/18 14:22 Order name: Magnesium EDMS 08/18 14:22 Order name: Magnesium EDMS 08/18 14:22 Order name: Magnesium EDMS 08/18 14:22 Order name: Magnesium EDMS 08/18 14:22 Order name: Troponin High Sensitivity EDMS 08/18 14:22 Order name: Troponin High Sensitivity EDMS 08/18 14:22 Order name: Troponin High Sensitivity EDMS 08/18 09:33 Order name: XRAY Chest (1 view); Complete Time: 11:20 kathrin 08/18 09:33 Order name: CT Head C Spine; Complete Time: 11:20 kathrin 08/18 13:35 Order name: Echo w/ Doppler kathrin 08/18 14:22 Order name: Carotid Artery Bilateral EDIL 08/18 09:33 Order name: EKG; Complete Time: 09:33 kathrin 08/18 13:35 Order name: EKG; Complete Time: 13:36 kathrin 08/18 14:22 Order name: CONS Physician Consult EDMS 08/18 09:33 Order name: Cardiac monitoring; Complete Time: 10:25 [facility] 08/18 09:33 Order name: EKG - Nurse/Tech; Complete Time: 11:15 [facility] 08/18 09:33 Order name: IV Saline Lock; Complete Time: 10:25 [facility] 08/18 09:33 Order name: Labs collected and sent; Complete Time: 10:25 [facility] 08/18 09:33 Order name: O2 Per Protocol; Complete Time: 10:25 [facility] 08/18 09:33 Order name: O2 Sat Monitoring; Complete Time: 10:25 [facility] 08/18 10:26 Order name: Labs - recollect needed: recollect blue top; Complete Time: 10:56 bd 08/18 11:23 Order name: Labs - recollect needed: recollect blue top again; Complete Time: 11:53 08/18 13:35 Order name: EKG - Nurse/Tech; Complete Time: 14:07 [facility] 08/18 14:23 Order name: EKG - Nurse/Tech: repeat EKG iw EC:35 Rate is 111 beats/min. Rhythm is irregularly irregular. QRS [place] is Normal. IN interval kathrin is normal. QRS interval is normal. QT interval is normal. No Q waves. T waves are Normal. No ST changes noted. Clinical impression: Atrial Fibrillation and No evidence of ischemia. Interpreted by me. Reviewed by me. Administered Medications: 10:24 Drug: NS 0.9% IV 1000 ml IV at 1 bolus Per protocol; to be given as a bolus over 60 hb minutes Route: IV; Rate: 1 bolus; Site: left forearm; 11:53 Follow up: Response: No adverse reaction; IV Status: Completed infusion; IV Intake: hb 1000ml 14:35 Drug: Enoxaparin Sub-Q 1 mg/kg Sub-Q once Route: Sub-Q; Site: abdomen; hb 14:35 Drug: Famotidine IVP 20 mg IVP once; dilute with 10 mL 0.9% NaCl; give over 2 minutes hb Route: IVP; Site: right forearm; Disposition Summary: 08/18/24 13:42 Hospitalization Ordered Notes: Hospitalization Status: Observation kathrin Provider: Dolores Wyatt cha Location: Telemetry/[facility] (observation) kathrin Condition: Fair kathrin Problem: new kathrin Symptoms: have improved kathrin Bed/Room Type: Standard kathrin Room Assignment: 401(08/18/24 14:31) bd Diagnosis - Dizziness and giddiness kathrin - Paroxysmal atrial fibrillation - with RVR kathrin - Dementia in other diseases classified elsewhere without behavioral disturbance kathrin Forms: - Medication Reconciliation Form kathrin - SBAR form kathrin - Leadership Thank You Letter kathrin Signatures: Dispatcher [employer] EDMS Fauzia Alves Corey, MD MD cha Williams, Irene, RN RN Mary Mota RN RN Corrections: (The following items were deleted from the chart) 14:31 13:42 kathrin bd
--- NOTE | 2024-08-18 13:48 | P.HP ---
Certification for Inpatient Patient admitted to: Inpatient With expected LOS: >2 Midnights Patient will require the following post-hospital care: None Practitioner: I am a practitioner with admitting privileges, knowledge of patient current condition, hospital course, and medical plan of care. Services: Services provided to patient in accordance with Admission requirements found in Title 42 Section 412.3 of the Code of Federal Regulations <Rochelle Lees - Last Filed: 08/18/24 19:36> Patient History Date of Service: 08/18/24 Reason for admission: Paroxysmal A-fib with RVR, dizziness status post LP History of Present Illness: Mr. Tim is a 69-year-old gentleman with a past medical history of BPH, diverticulitis, and is currently being evaluated for early onset dementia by Dr. Multani. He underwent an LP yesterday. To his knowledge he has never had hypertension, palpitations, or an irregular heartbeat. Of note, on arrival to the emergency department his EKG showed A-fib with RVR at a rate of 101, but after 1 L of fluid he converted to normal sinus rhythm with a rate of 68. The emergency room physician was concerned for paroxysmal A-fib. However, Mr. Tim and his state that he was doing well after the LP yesterday went to sleep and on arising this morning he had a headache and got very lightheaded and nauseous. He states he felt better when he laid down. His gives me a history of a subdural hematoma in 1994 necessitating four brian holes. In 2014, he had a pulmonary embolism and was on blood thinners until 2016 when they were stopped for a bladder stone procedure. He just recently started taking a low-dose aspirin daily at Dr. Multani's recommendation. Secondary to the LP yesterday, aspirin was stopped 1 week prior. We will admit him for close monitoring on telemetry with consultation to cardiology and neurology. I will place him on low-dose Lovenox until any rhythm change. In the meantime we will hydrate him, offer Fioricet as needed headache, and continue a near syncope evaluation. In case of spinal headache and need for a blood patch, after hydration and treatment of his headache we will reevaluate the need for any immediate anticoagulation. Home medications list reviewed: Yes - Past Medical/Surgical History Has patient received pneumonia vaccine in the past: Yes -: BPH -: Subdural hematoma -: PE -: Bladder stones -: Early onset dementia -: Spray hole for subdural -: Bladder stone removal -: Appendectomy Psychosocial/ Personal History: Lives at home with his . In asking his history he said that his parents both have had CVAs, he states his dad passed 3 weeks ago. His gently reminded him that it was 33 years ago. She appears exhausted and when asked if this is his usual mentation, she said yes - Social History Smoking Status: Never smoker Alcohol use: No CD- Drugs: No Caffeine use: Yes Place of Residence: Home <Ivelisse Leeswander Maher - Last Filed: 08/18/24 19:36> Date of Service: 08/19/24 <Dolores Wyatt - Last Filed: 08/19/24 09:50> Allergies Penicillins Allergy (Verified 08/17/24 09:46) Hives/Rash Home Medications: Aspirin 81 mg PO DAILY 08/17/24 Donepezil HCl 10 mg PO DAILY 08/17/24 Finasteride [Proscar] 5 mg PO DAILY 08/17/24 Mv-Min/Folic/K1/Lycopen/Lutein [Centrum Men 50 Plus Minis Tab] 1 tab PO DAILY 08/17/24 Review of Systems 10-point ROS is otherwise unremarkable General: Weakness, Malaise Eyes: Unremarkable ENT: Unremarkable Respiratory: SOB with Excertion (Sometimes) Cardiovascular: Light Headedness, As per HPI Gastrointestinal: Nausea Genitourinary: As per HPI Musculoskeletal: Unremarkable Integumentary: Unremarkable Neurological: As per HPI Lymphatics: Unremarkable <Rochelle Lees Gunnar - Last Filed: 08/18/24 19:36> Physical Examination - Physical Exam General: Alert, In no apparent distress, Cooperative, Confused HEENT: Atraumatic, Normocephalic Neck: Supple Respiratory: Normal air movement Cardiovascular: No edema Capillary refill: <2 Seconds Gastrointestinal: Normal bowel sounds Musculoskeletal: No clubbing Integumentary: No rashes Neurological: Normal speech, Normal tone, Other (Forgetful, mistates timeframe), Abnormal affect Lymphatics: No axilla or inguinal lymphadenopathy External genitalia: Deferred Rectal: Deferred - Studies Laboratory Data (last 24 hrs) 08/18/24 08/18/24 08/18/24 11:46 10:12 10:12 WBC 8.70 Hgb 15.1 Hct 46.2 Plt Count 202 PT 12.4 INR 1.11 Sodium 142 Potassium 3.8 BUN 21 H Creatinine 1.25 Glucose 132 H Magnesium 2.1 Total Bilirubin 0.6 AST 17 ALT 19 Alkaline Phosphatase 79 Lipase 27 <Rochelle Lees - Last Filed: 08/18/24 19:36> - Studies Laboratory Data (last 24 hrs) 08/18/24 08/18/24 08/18/24 11:46 10:12 10:12 WBC 8.70 Hgb 15.1 Hct 46.2 Plt Count 202 PT 12.4 INR 1.11 Sodium 142 Potassium 3.8 BUN 21 H Creatinine 1.25 Glucose 132 H Magnesium 2.1 Total Bilirubin 0.6 AST 17 ALT 19 Alkaline Phosphatase 79 Lipase 27 <Dolores Wyatt C - Last Filed: 08/19/24 09:50> Assessment and Plan - Plan A-fib with RV- new onset Resolved status post 1 L normal saline bolus; repeat EKG 40 mg Lovenox subcu daily Telemetry Consult cardiology Echo Carotid Doppler Orthostatics Monitor electrolytes Headache/lightheadedness possibly related to LP Hydration Fioricet as needed Consult Dr. Multani Neurochecks every 4 Fall precautions Skin protection measures BPH/dementia Continue usual medication VTE/GI prophylaxis Discharge Plan: Home Plan to discharge in: 48 Hours - Advance Directives Does patient have a Living Will: No Does patient have a Durable POA for Healthcare: No - Code Status/Comfort Care Code Status Assessed: Yes Code Status: Full Code <Rochelle Lees - Last Filed: 08/18/24 19:36> Physician Review Additional Text: Pt seen and examined. I agree with the note by the GREEN [employer] TRAINER. Pt is a 69 yo male with past medical history of diverticulitis and enlarged prostate who presents with dizziness, generalized weakness, and lightheadedness that started this am. Of note, pt had lumbar puncture yesterday. On admission, EKG shows A. fib with RVR. Lab studies show wbc 8.7, hgb 15.1. k 3.8, Cr 1.25. At bedside, pt is in NAD. A/P: A.Fib with RVR: resolved. Now in NSR. Will continue telemetry and aspirin. Will hold metoprolol for now. Consulted Cardiology. Headache: Likely due to the lumbar puncture. Will give fioricet. Consulted neurology. BPH: Will continue Flomax DVT ppx: SCD Code: full <Dolores Wyatt - Last Filed: 08/19/24 09:50>
[2024-08-18 13:58] LABS: Calcium Oxalate Crystals- Ur Moderate /HPF (None Seen); Specific Gravity 1.021 (1.005-1.030); Transitional Epithelial <5 /HPF (None Seen); Urine Bacteria None Seen /HPF (<20); Urine Bilirubin NEGATIVE (Negative); Urine Blood 2+ (Negative); Urine Clarity Extremely Turbid (Clear); Urine Color Yellow (Yellow); Urine Culture Reflex Order REFLEXED; Urine Glucose NEGATIVE (Negative); Urine Ketones 1+ (Negative); Urine Microscopic Reflex YN ORDER UMIC; Urine Mucus 4+ /HPF (None Seen); Urine Nitrite NEGATIVE (Negative); Urine Protein 1+ (Negative); Urine RBC >50 /HPF (None Seen); Urine Urobilinogen Normal (Normal); Urine WBC 20-50 /HPF (<5)
[2024-08-18] MEDS ORDERED: FAMOTIDINE 20 MG/2 ML VIAL IV ONE (14:28)
[2024-08-18] MEDS ORDERED: ENOXAPARIN 100 MG/ML SYR SQ ONE (14:28)
[2024-08-18] MEDS ORDERED: ACETAMIN/CAFFEINE/BUTALB TAB PO PRN (15:23)
[2024-08-18] MEDS ORDERED: FLU (Fluarix Triv) TS24-25(6MOS UP)/PF 45 MCG/0.5 ML Syringe IM ONE (16:30)
[2024-08-18 16:35] VITALS: BMI 25.9
[2024-08-18] MEDS: DONEPEZIL HCL 5 MG TAB PO SCH (21:31)
[2024-08-18] MEDS: NA CHLORIDE 0.9% 1,000 ML IV SCH (21:31)
[2024-08-18 21:55] VITALS: O2SAT 97
--- NOTE | 2024-08-18 22:16 | RAD REPORT ---
EXAMINATION: US CAROTID DUPLEX CLINICAL INDICATION: Dizziness TECHNIQUE: Real-time grayscale, color flow and spectral Doppler sonographic images were obtained of [facility] extracranial carotid system using a linear transducer. COMPARISON: 2016. FINDINGS: The velocity of the right internal carotid artery 81 cm/s The right ICA/CCA ratio 1.7 The velocity left internal carotid artery 81 cm/s The left ICA/CCA ratio normal Moderate soft plaque is present within the carotid bulbs bilaterally. Vertebral arteries demonstrate anterograde flow. No significant abnormality external carotid arteries Methods for NASCET criteria: mild stenosis, 0% to 49%; moderate, 50% to 69%; severe stenosis, 70% to 99% IMPRESSION: Moderate soft plaque within the carotid bulbs bilaterally appear to result in approximately 50-55% st enosis
[2024-08-19 06:46] LABS: Absolute Basophils 0.1 K/uL (0-0.5); Absolute Eosinophils 0.3 K/uL (0-0.5); Absolute Lymphocytes (CBC) 1.8 K/uL (0.7-4.9); Absolute Monocytes 0.8 K/uL (0.1-1.3); Absolute Neutrophil 2.8 K/uL (1.8-8.0); Basophils % 0.9 % (0-1.3); Eosinophils % 4.7 % (0-4.4); Hemoglobin 12.7 g/dL (13.6-17.9); MCH 32.9 pg (27.0-35.0); MCHC 33.5 g/dL (32.0-36.0); MCV 98.4 fL (80-100); MPV 9.8 fL (7.6-11.3); Monocytes % 13.6 % (3.3-12.3); Neutrophils % 48.8 % (41.7-73.7); Nucleated Red Blood Cells % 0.1 % (0-0); Platelets 162 thou/uL (152-406); RBC Red Blood Cell Count 3.86 M/uL (4.33-5.43); Red Cell Distribution Width 13.4 % (12.1-15.2)
--- NOTE | 2024-08-19 06:52 | ECHO ---
HEIGHT: 6 ft 4 in WEIGHT: 213 lb 0 oz DATE OF STUDY: 08/18/[address]: Chris Tello MD 2-DIMENSIONAL: YES M.MODE: YES DOPPLER: YES COLOR FLOW: YES TDS: PORTABLE: YES DEFINITY: BUBBLE STUDY: DIAGNOSIS: ATRIAL FIBRILLATION CARDIAC HISTORY: CATHERIZATION: SURGERY: PROSTHETIC VALVE: PACEMAKER: MEASUREMENTS (cm) DIASTOLIC (NORMALS) SYSTOLIC (NORMALS) IVSd 1.0 (0.6-1.2) LA Diam 2.9 (1.9-4.0) LVEF 60-65% LVIDd 4.1 (3.5-5.7) LVIDs 2.4 (2.0-3.5) %FS LVPWd 1.0 (0.6-1.2) Ao Diam 3.6 (2.0-3.7) 2 DIMENSIONAL ASSESSMENT: RIGHT ATRIUM: NORMAL LEFT ATRIUM: NORMAL RIGHT VENTRICLE: NORMAL LEFT VENTRICLE: NORMAL TRICUSPID VALVE: NORMAL MITRAL VALVE: NORMAL PULMONIC VALVE: NORMAL AORTIC VALVE: NORMAL PERICARDIAL EFFUSION: NONE AORTIC ROOT: NORMAL LEFT VENTRICULAR WALL MOTION: NORMAL DOPPLER/COLOR FLOW: NORMAL COMMENTS: 1. NORMAL LEFT VENTRICULAR SYSTOLIC FUNCTION, EJECTION FRACTION 60-65%, NORMAL WALL MOTION 2. NORMAL DIASTOLIC FUNCTION TECHNOLOGIST: SHANA RASCON
[2024-08-19 07:12] LABS: Albumin/Globulin Ratio 1.1 (1.1-1.8); Anion Gap 8.3 mEq/L (5.0-15.0); Bilirubin Total 0.6 mg/dL (0.2-1.0); Globulin 2.8 g/dL (2.3-3.5); Potassium 4.3 mEq/L (3.5-5.1); Protein, Total 5.8 g/dL (6.4-8.2); Troponin High Sensitivity 41.7 pg/mL (<58.9)
[2024-08-19] MEDS: FINASTERIDE 5 MG TAB PO SCH (08:45)
[2024-08-19] MEDS: ENOXAPARIN 40 MG/0.4 ML SQ SCH (08:45)
--- NOTE | 2024-08-19 11:58 | P.CNS ---
Date of Consult: 08/19/24 Chief Complaint: Paroxysmal A-fib with RVR, dizziness status post LP History of Present Illness: Patient with history of suspected early onset dementia, presented with weakness, headache and palpitations after recent LP, denies chest pain, no SOB, no PORTER, no syncope. Allergies Penicillins Allergy (Verified 08/17/24 09:46) Hives/Rash Home medications list reviewed: Yes Home Medications: Aspirin 81 mg PO DAILY 08/17/24 Donepezil HCl 10 mg PO DAILY 08/17/24 Finasteride [Proscar] 5 mg PO DAILY 08/17/24 Mv-Min/Folic/K1/Lycopen/Lutein [Centrum Men 50 Plus Minis Tab] 1 tab PO DAILY 08/17/24 - Past Medical/Surgical History Diabetic: No -: BPH -: Subdural hematoma -: PE -: Bladder stones -: Early onset dementia -: Ambler hole for subdural -: Bladder stone removal -: Appendectomy Psychosocial/ Personal History: Lives at home with his . In asking his history he said that his parents both have had CVAs, he states his dad passed 3 weeks ago. His gently reminded him that it was 33 years ago. She appears exhausted and when asked if this is his usual mentation, she said yes - Social History Alcohol use: No CD- Drugs: No Caffeine use: Yes Place of Residence: Home Review of Systems 10-point ROS is otherwise unremarkable Physical Examination Temp Pulse Resp BP Pulse Ox 98.8 F 71 14 140/81 98 08/19/24 08:00 08/19/24 08:00 08/19/24 08:00 08/19/24 08:00 08/19/24 08:00 General: Alert, In no apparent distress HEENT: Atraumatic, PERRLA, Mucous membr. moist/pink, EOMI, Sclerae nonicteric Neck: Supple, 2+ carotid pulse no bruit, No LAD, Without JVD or thyroid abnormality Respiratory: Clear to auscultation bilaterally, Normal air movement Cardiovascular: Regular rate/rhythm, Normal S1 S2 Gastrointestinal: Normal bowel sounds, No tenderness Musculoskeletal: No tenderness Integumentary: No rashes Neurological: Normal gait, Normal speech, Normal tone, Normal affect Lymphatics: No axilla or inguinal lymphadenopathy Laboratory Data (last 24 hrs) 08/18/24 11:46 PT 12.4 INR 1.11 - Problems (1) Atrial fibrillation Current Visit: Yes Status: Acute Plan: Patient had a short episode of AF, now in sinus rhythm, prior MRI shows cerebe llar stroke Toprol XL 25 mg daily Xarelto 20 mg daily outpatient follow up for event monitor
--- NOTE | 2024-08-19 12:17 | EKG ---
Test Date: 2024-08-18 Test Time: 11:12:46 Retail Shift Leader: PETER MEASUREMENT RESULTS: Intervals: Rate: 111 [place]: QRSD: 76 QT: 282 QTc: 383 [place]: P: [place]: QRS: 79 T: 62 INTERPRETIVE STATEMENTS: Atrial fibrillation with rapid ventricular response Abnormal ECG Compared to ECG 10/30/2001 11:33:00 Sinus rhythm no longer present Electronically Signed On 08-19-24 12:14:28 CDT by Farshad Figueroa
--- NOTE | 2024-08-19 12:27 | P.DS ---
Admission Date: 08/18/24 Discharge Date: 08/19/24 Disposition: ROUTINE DISCHARGE Discharge Condition: GOOD Reason for Admission: Paroxysmal A-fib with RVR, dizziness status post LP Brief History of Present Illness: Mr. Tim is a 69-year-old gentleman with a past medical history of BPH, diverticulitis, and is currently being evaluated for early onset dementia by Dr. Multani. He underwent an LP yesterday. To his knowledge he has never had hypertension, palpitations, or an irregular heartbeat. Of note, on arrival to the emergency department his EKG showed A-fib with RVR at a rate of 101, but after 1 L of fluid he converted to normal sinus rhythm with a rate of 68. The emergency room physician was concerned for paroxysmal A-fib. However, Mr. Tim and his state that he was doing well after the LP yesterday went to sleep and on arising this morning he had a headache and got very lightheaded and nauseous. He states he felt better when he laid down. His gives me a history of a subdural hematoma in 1994 necessitating four brian holes. In 2014, he had a pulmonary embolism and was on blood thinners until 2017 when they were stopped for a bladder stone procedure. He just recently started taking a low-dose aspirin daily at Dr. Multani's recommendation. Secondary to the LP yesterday, aspirin was stopped 1 week prior. We will admit him for close monitoring on telemetry with consultation to cardiology and neurology. I will place him on low-dose Lovenox until any rhythm change. In the meantime we will hydrate him, offer Fioricet as needed headache, and continue a near syncope evaluation. In case of spinal headache and need for a blood patch, after hydration and treatment of his headache we will reevaluate the need for any immediate anticoagulation. Hospital Course: Pt is a 69 yo male with past medical history of diverticulitis and enlarged prostate who presented with dizziness, generalized weakness, and lightheadedness that started on the day of admission. Of note, pt had lumbar puncture the day before this admission. He also complained of headache. On admission, EKG showed A. fib with RVR. Lab studies showed wbc 8.7, hgb 15.1. k 3.8, Cr 1.25. We ad mitted pt for A.Fib with RVR. Pt converted to normal sinus rhythm upon admission. We continued telemetry, aspirin and consulted Cardiology. Cardiology evaluated pt and recommended metoprolol Xl 25mg po daily and xarelto. We also gave prn fioricet for post lumbar puncture headache. I talked to the neurologist, Dr. Multani who recommended magnesium oxide for the headache. Pt was advised to follow up with Neurology in clinic for further evaluation if the headache continued. Cardiology advised pt to follow up in clinic for event monitor. Pt was in NAD prior to discharge. Vital Signs/Physical Exam: Temp Pulse Resp BP Pulse Ox 98.8 F 71 14 140/81 98 08/19/24 08:00 08/19/24 08:00 08/19/24 08:00 08/19/24 08:00 08/19/24 08:00 Laboratory Data at Discharge: WBC 5.70 thou/uL (4.3-10.9) 08/19/24 05:34 Hgb 12.7 g/dL (13.6-17.9) L D 08/19/24 05:34 Hct 38.0 % (39.6-49.0) L 08/19/24 05:34 Plt Count 162 thou/uL (152-406) 08/19/24 05:34 PT 12.4 SECONDS (9.4-12.5) 08/18/24 11:46 INR 1.11 08/18/24 11:46 Sodium 142 mEq/L (136-145) 08/19/24 05:34 Potassium 4.3 mEq/L (3.5-5.1) D 08/19/24 05:34 BUN 20 mg/dL (7-18) H 08/19/24 05:34 Creatinine 1.01 mg/dL (0.70-1.30) 08/19/24 05:34 Glucose 88 mg/dL (74-106) 08/19/24 05:34 Magnesium 2.0 mg/dL (1.6-2.4) 08/19/24 05:34 Total Bilirubin 0.6 mg/dL (0.2-1.0) 08/19/24 05:34 AST 13 U/L (15-37) L 08/19/24 05:34 ALT 17 U/L (16-61) 08/19/24 05:34 Alkaline Phosphatase 62 U/L (45-117) D 08/19/24 05:34 Triglycerides 76 mg/dL (<150) 08/19/24 05:34 Cholesterol 141 mg/dL (<200) 08/19/24 05:34 HDL Cholesterol 35 mg/dL (40-60) L 08/19/24 05:34 Cholesterol/HDL Ratio 4.03 08/19/24 05:34 Lipase 27 U/L (13-75) 08/18/24 10:12 Home Medications: Aspirin 81 mg PO DAILY 08/17/24 Donepezil HCl 10 mg PO DAILY 08/17/24 Finasteride [Proscar*] 5 mg PO DAILY 08/17/24 Mv-Min/Folic/K1/Lycopen/Lutein [Centrum Men 50 Plus Minis Tab] 1 tab PO DAILY 08/17/24 Magnesium Oxide 400 mg PO DAILY PRN 7 Days #7 tab 08/19/24 Metoprolol Succinate 25 mg PO DAILY 30 Days #30 tab 08/19/24 Rivaroxaban [Xarelto] 20 mg PO DAILY 60 Days #60 tab 08/19/24 New Medications: Magnesium Oxide 400 mg PO DAILY PRN 7 Days #7 tab PRN Reason: Pain Scale 2-4 (Mild) Metoprolol Succinate 25 mg PO DAILY 30 Days #30 tab Rivaroxaban [Xarelto] 20 mg PO DAILY 60 Days #60 tab Physician Discharge Instructions: Continue ad rosalva activity as tolerated. Take metoprolol, xarelto and magnesium oxide as prescribed. Follow up with Dr. Multani within a week if the headache persists. Follow up with PCP and cardiology within 1 - 2 weeks in clinic. FOllow up with cardiology in clinic for event monitor. Followup: Daniel Garcia MD [Primary Care Provider] -
[2024-08-19 12:29] VITALS: BP 129/74; TEMP 98.2
== END 2024-08-19 13:16 | disposition home or self-care (01) | DRG 310 ==
LOC: ER 09:23 → 4TH 14:14
PROVIDERS: ADMIT Hospitalist; ATTEND Hospitalist
DX: I48.0 Paroxysmal atrial fibrillation (principal); N40.0 Benign prostatic hyperplasia without lower urinary tract symptoms; G97.1 Other reaction to spinal and lumbar puncture; F03.90 Unspecified dementia, unspecified severity, without behavioral disturbance, psychotic disturbance, mood disturbance, and anxiety; Z88.0 Allergy status to penicillin; Z63.4 Disappearance and death of family member; Z79.82 Long term (current) use of aspirin; Z79.01 Long term (current) use of anticoagulants; Z90.49 Acquired absence of other specified parts of digestive tract; Z79.899 Other long term (current) drug therapy; Z86.711 Personal history of pulmonary embolism; Y84.4 Aspiration of fluid as the cause of abnormal reaction of the patient, or of later complication, without mention of misadventure at the time of the procedure
CPT/HCPCS: 36415; 70450; 71045; 72125; 80048; 80053; 80061; 80076; 81001; 82550; 83690; 83735; 83880; 84443; 84484; 85025; 85610; 87086; 87088; 93306; 93880; 96361; 96372; 96374; 99285; G0378; J1650; J7030

== ENCOUNTER 2024-11-19 10:21 | Emergency (ER) | payer OTHER ==
[2024-11-19 11:28] LABS: Absolute Basophils 0.1 K/uL (0-0.5); Absolute Eosinophils 0.2 K/uL (0-0.5); Absolute Lymphocytes (CBC) 1.3 K/uL (0.7-4.9); Absolute Monocytes 0.6 K/uL (0.1-1.3); Absolute Neutrophil 7.7 K/uL (1.8-8.0); Basophils % 0.6 % (0-1.3); Eosinophils % 1.7 % (0-4.4); Hematocrit 43.7 % (39.6-49.0); Hemoglobin 14.8 g/dL (13.6-17.9); Lymphocytes % 12.8 % (15.3-44.8); MCHC 33.9 g/dL (32.0-36.0); MCV 97.1 fL (80-100); MPV 9.5 fL (7.6-11.3); Monocytes % 6.5 % (3.3-12.3); Neutrophils % 78.4 % (41.7-73.7); Platelets 225 thou/uL (152-406); Red Cell Distribution Width 13.6 % (12.1-15.2)
[2024-11-19 11:30] LABS: Anion Gap 8.2 mEq/L (5.0-15.0); Potassium 4.2 mEq/L (3.5-5.1); Troponin High Sensitivity 17.3 pg/mL (<58.9)
--- NOTE | 2024-11-19 12:21 | RAD REPORT ---
EXAM: Chest Single View HISTORY: cardiac workup COMPARISON: 08/18/2024 FINDINGS: LUNGS/PLEURA: The lungs are clear. No pleural effusions or pneumothorax. No pulmonary edema. Calcifie d right upper lobe nodule. MEDIASTINUM: The mediastinal silhouette is within normal limits. CARDIAC: The cardiac silhouette is within normal limits. UPPER ABDOMEN: No significant abnormality. BONES: No acute abnormality. LINES/TUBES/OTHER: N/A IMPRESSION: No evidence of acute cardiopulmonary disease.
--- NOTE | 2024-11-19 13:11 | ER ---
Nurse's Notes [facility] Name: Sin Tim Age: 69 yrs Sex: Male : 1955 Arrival Date: 11/19/2024 Time: 10:21 Bed 17 Private MD: Diagnosis: Chronic atrial fibrillation;Syncope Near Presentation: 11/19 10:38 Chief complaint: Near syncopal episode while in shower this morning. Coronavirus hb screen: At this time, the client does not indicate any symptoms associated with coronavirus-19. Ebola Screen: No symptoms or risks identified at this time. Initial Sepsis Screen: Does the patient meet any 2 criteria? No. Patient's initial sepsis screen is negative. Does the patient have a suspected source of infection? No. Patient's initial sepsis screen is negative. Risk Assessment: Do you want to hurt yourself or someone else? Patient reports no desire to harm self or others. Onset of symptoms was November 19, 2024. 10:38 Method Of Arrival: Ambulatory hb 10:38 Acuity: OBDULIA 3 hb 11:00 Acuity: OBDULIA 2 aa5 Historical: - Allergies: 10:39 PENICILLINS; hb - Home Meds: 10:39 finasteride 5 mg Oral Tablet daily [Active]; fluorouracil 5 % Topical cream WEEKLY hb [Active]; donepezil 10 mg Oral Tablet twice a day [Active]; Men's Multivitamin oral [Active]; Xarelto 20 mg oral tablet daily [Active]; metoprolol succinate 25 mg oral Tablet, Extended Release 24 hr daily [Active]; 11:00 [facility] multivitamin and multimineral [Active]; aa5 - PMHx: 10:39 Diverticulitis; enlarged prostate; Alzheimer's disease; CVA; PE; Atrial fibrillation; hb - Immunization history:: Adult Immunizations up to date. - Infectious Disease History:: Denies. - Social history:: Smoking status: Patient denies any tobacco usage or history of. Screenin:00 [facility] ED Fall Risk Assessment (Adult) History of falling in the last 3 months, aa5 including since admission Yes- physiologic fall (2 pts) Confusion or Disorientation Yes (5 pts) Intoxicated or Sedated No (0 pts) Impaired Gait No (0 pts) Mobility Assist Device Used No (0 pt) Altered Elimination No (0 pt) Score/Fall Risk Level 3 or more points = High Risk Oriented to surroundings, Maintained a safe environment, Educated pt \T\ family on fall prevention, incl call for assistance when getting out of bed, Assessed \T\ reinforced patient's understanding of fall precautions, Hourly rounding (assess needs \T\ fall precautionary measures) done. Abuse screen: Denies threats or abuse. Nutritional screening: No deficits noted. Tuberculosis screening: No symptoms or risk factors identified. Assessment: 11:00 General: Appears comfortable, Behavior is calm, cooperative. Pain: Complains of pain in aa5 head Quality of pain is described as aching. Neuro: Level of Consciousness is awake, alert, obeys commands, Oriented to person, place, situation. Cardiovascular: Heart tones S1 S2 present Rhythm is atrial fibrillation with rapid ventricular response. Respiratory: Airway is patent Respiratory effort is even, unlabored, Respiratory pattern is regular, symmetrical. GI: No signs and/or symptoms were reported involving the gastrointestinal system. : No signs and/or symptoms were reported regarding the genitourinary system. EENT: Reports nasal congestion nasal discharge that is watery. Derm: Skin is pink, warm \T\ dry. Musculoskeletal: Range of motion: intact in all extremities. 11:42 Reassessment: Patient is alert, oriented x 3, equal unlabored respirations, skin aa5 warm/dry/pink. Cardiovascular: Rhythm is sinus rhythm. 12:10 Reassessment: MD at bedside . aa5 12:30 Cardiovascular: Rhythm is sinus rhythm. aa5 12:30 Reassessment: Patient is alert, oriented x 3, equal unlabored respirations, skin aa5 warm/dry/pink. 13:30 Cardiovascular: Rhythm is sinus rhythm. aa5 13:40 Reassessment: Patient is alert, oriented x 3, equal unlabored respirations, skin aa5 warm/dry/pink. Vital Signs: 10:38 BP 117 / 81; Pulse 98; Resp 16; Temp 98.3; Pulse Ox 98% on R/A; Weight 92.99 kg; Height hb 6 ft. 3 in. ; Pain 0/10; 11:00 BP 110 / 78; Pulse 140; Resp 16 S; Pulse Ox 98% on R/A; aa5 11:20 Pulse 125; aa5 11:41 BP 109 / 69; Pulse 72; Resp 16 S; Pulse Ox 99% on R/A; aa5 12:10 BP 126 / 83; Pulse 72; Resp 14 S; Pulse Ox 98% on R/A; aa5 13:20 BP 115 / 79; Pulse 62; Resp 16 S; Pulse Ox 100% on R/A; aa5 10:38 Body Mass Index 25.62 (92.99 kg, 190.5 cm) hb 10:38 Pain Scale: Adult hb 11:00 HR fluctuating between 120-140bpm, MD was notified. aa5 ED Course: 10:22 Patient arrived in ED. im 10:34 Mckenzie See, RN is Primary Nurse. aa5 10:37 Scar Miller MD is Attending Physician. bo1 10:39 Triage completed. hb 10:41 Arm band placed on. hb 11:00 Patient has correct armband on for positive identification. Placed in gown. Bed in low aa5 position. Call light in reach. Side rails up X2. Adult w/ patient. Client placed on continuous cardiac and pulse oximetry monitoring. NIBP monitoring applied. potline monitor on. Pulse ox on. NIBP on. 11:00 Initial lab(s) drawn, by me, sent to lab. Inserted saline lock: 20 gauge in right aa5 antecubital area, using aseptic technique. Blood collected. Flushed with 10 mL NS. 11:04 EKG done, by ED staff, reviewed by Scar Miller MD. aa5 12:13 XRAY Chest (1 view) In Process Unspecified. EDMS 12:21 EKG done, by ED staff, reviewed by Scar Miller MD. ty 13:10 Raji Pat MD is Referral Physician. bo1 13:40 No provider procedures requiring assistance completed. IV discontinued, intact, aa5 bleeding controlled, No redness/swelling at site. Pressure dressing applied. Administered Medications: 11:13 Not Given (PT took as AM home medication ): [id number] mg PO once aa5 Medication: 11:16 VIS not applicable for this client. aa5 Outcome: 13:11 Discharge ordered by . bo1 13:40 Discharged to home ambulatory, with significant other, aa5 13:40 Condition: stable 13:40 Discharge instructions given to patient, significant other, Instructed on discharge instructions, follow up and referral plans. Demonstrated understanding of instructions, follow-up care, 13:44 Patient left the ED. aa5 Signatures: Dispatcher [employer] Mckenzie Kendall RN RN aa5 Mary Mota RN RN hb Mendoza, Itzel im Yandell, Tylor ty Oei, Benjamin, MD MD bo1 Corrections: (The following items were deleted from the chart) 11:16 11:00 [facility] ED Fall Risk Assessment (Adult) History of falling in the last 3 months, aa5 including since admission No falls in past 3 months (0 pts) Confusion or Disorientation Yes (5 pts) Intoxicated or Sedated No (0 pts) Impaired Gait No (0 pts) Mobility Assist Device Used No (0 pt) Altered Elimination No (0 pt) Score/Fall Risk Level 3 or more points = High Risk Oriented to surroundings, Maintained a safe environment, Educated pt \T\ family on fall prevention, incl call for assistance when getting out of bed, Assessed \T\ reinforced patient's understanding of fall precautions, Hourly rounding (assess needs \T\ fall precautionary measures) done, aa5 11:17 11:00 Pain: Denies pain. aa5 aa5
--- NOTE | 2024-11-19 13:11 | EDPHYS ---
Physician Documentation [facility] Name: Sin Tim Age: 69 yrs Sex: Male : 1955 Arrival Date: 11/19/2024 Time: 10:21 Bed 17 Private MD: ED Physician Scar Miller HPI: 11/19 13:04 This 69 yrs old Male presents to ER via Ambulatory with complaints of Near Syncope. bo1 13:04 The patient has experienced near-syncope, felt dizzy, While in the bathroom. Pt did not bo1 fall or hit his head. Onset: The symptoms/episode began/occurred suddenly, just prior to arrival. Duration: This was a single episode. Context: the episode(s) was witnessed, by a significant other. Associated injury: The patient did not suffer any apparent associated injury. Pt had been busy to put out the trash for pickup, then felt dizzy in the bathroom. 13:06 Pt's spouse contacted Dr Figueroa's office and spoke to the nurse... checked the BP, bo1 which was low and a HR less than a 100. Historical: - Allergies: 10:39 PENICILLINS; hb - Home Meds: 10:39 finasteride 5 mg Oral Tablet daily [Active]; fluorouracil 5 % Topical cream WEEKLY hb [Active]; donepezil 10 mg Oral Tablet twice a day [Active]; Men's Multivitamin oral [Active]; Xarelto 20 mg oral tablet daily [Active]; metoprolol succinate 25 mg oral Tablet, Extended Release 24 hr daily [Active]; 11:00 [facility] multivitamin and multimineral [Active]; aa5 - PMHx: 10:39 Diverticulitis; enlarged prostate; Alzheimer's disease; CVA; PE; Atrial fibrillation; hb - Immunization history:: Adult Immunizations up to date. - Infectious Disease History:: Denies. - Social history:: Smoking status: Patient denies any tobacco usage or history of. ROS: 13:06 Constitutional: Negative for fever, chills, and weight loss bo1 13:06 Neck: Negative for pain with movement, pain at rest, 13:06 Cardiovascular: Negative for chest pain, 13:06 Cardiovascular: Positive for palpitations, Negative for 13:06 Respiratory: Negative for cough, shortness of breath, 13:06 Abdomen/GI: Negative for abdominal pain, 13:06 MS/extremity: Negative for pain, swelling, 13:06 Skin: Negative for rash, 13:06 All other systems are negative, Exam: 11:09 ECG was reviewed by the Attending Physician. bo1 13:12 Constitutional: This is a well developed, well nourished patient who is awake, alert, bo1 and in no acute distress. Neck: Trachea midline, no thyromegaly or masses palpated, and no cervical lymphadenopathy. Supple, full range of motion without nuchal rigidity, or vertebral point tenderness. No Meningismus. Cardiovascular: Regular rate and rhythm with a normal S1 and S2. No gallops, murmurs, or rubs. Normal PMI, no JVD. No pulse deficits. Respiratory: Lungs have equal breath sounds bilaterally, clear to auscultation and percussion. No rales, rhonchi or wheezes noted. No increased work of breathing, no retractions or nasal flaring. Abdomen/GI: Soft, non-tender, with normal bowel sounds. No distension or tympany. No guarding or rebound. No evidence of tenderness throughout. Skin: Warm, dry with normal turgor. Normal color with no rashes, no lesions, and no evidence of cellulitis. MS/ Extremity: Pulses equal, no cyanosis. Neurovascular intact. Full, normal range of motion. Neuro: Awake and alert, GCS 15, oriented to person, place, time, and situation. Cranial nerves II-XII grossly intact. Motor strength 5/5 in all extremities. Sensory grossly intact. Cerebellar exam normal. Normal gait. Vital Signs: 10:38 BP 117 / 81; Pulse 98; Resp 16; Temp 98.3; Pulse Ox 98% on R/A; Weight 92.99 kg; Height hb 6 ft. 3 in. ; Pain 0/10; 11:00 BP 110 / 78; Pulse 140; Resp 16 S; Pulse Ox 98% on R/A; aa5 11:20 Pulse 125; aa5 11:41 BP 109 / 69; Pulse 72; Resp 16 S; Pulse Ox 99% on R/A; aa5 12:10 BP 126 / 83; Pulse 72; Resp 14 S; Pulse Ox 98% on R/A; aa5 13:20 BP 115 / 79; Pulse 62; Resp 16 S; Pulse Ox 100% on R/A; aa5 10:38 Body Mass Index 25.62 (92.99 kg, 190.5 cm) hb 10:38 Pain Scale: Adult hb 11:00 HR fluctuating between 120-140bpm, was notified. aa5 MDM: 10:37 Medical Screening Exam initiated bo1 13:08 Differential Diagnosis: vasovagal episode, Afib with RVR. Data reviewed: vital signs, bo1 lab test result(s), EKG, radiologic studies, plain films. ED course: Pt converted with 1 dose of PO metoprolol and HR is in the 60's. Attempts to reach Dr Henry BAKER office is unsuccessful as it is closed. Recommend F/U as an OP with resuming regular meds including his metoprolol and Xarelto.. 11/19 10:52 Order name: Basic Metabolic Panel; Complete Time: 11:58 11/19 10:52 Order name: CBC with Diff; Complete Time: 11:58 11/19 10:52 Order name: Troponin HS; Complete Time: 11:58 11/19 10:52 Order name: XRAY Chest (1 view); Complete Time: 12:23 11/19 10:52 Order name: EKG; Complete Time: 10:53 11/19 10:52 Order name: Cardiac monitoring; Complete Time: 10:52 11/19 10:52 Order name: EKG - Nurse/Tech; Complete Time: 11:06 11/19 10:52 Order name: IV Saline Lock; Complete Time: 10:52 11/19 10:52 Order name: Labs collected and sent; Complete Time: 10:52 11/19 10:52 Order name: O2 Per Protocol; Complete Time: 10:52 11/19 10:52 Order name: O2 Sat Monitoring; Complete Time: 10:52 EC:09 Rate is 112 beats/min. Rhythm is irregular. QRS [place] is Normal. MO interval is normal. bo1 QRS interval is normal. QT interval is normal. No Q waves. T waves are Normal. No ST changes noted. Clinical impression: Atrial Fibrillation and with RVR - rate \T\ 112. Interpreted by me. Reviewed by me. Administered Medications: 11:13 Not Given (PT took as AM home medication ): [id number] mg PO once aa5 Disposition Summary: 11/19/24 13:11 Discharge Ordered Notes: Location: Home bo1 Problem: chronic bo1 Symptoms: have improved bo1 Condition: Stable bo1 Diagnosis - Chronic atrial fibrillation bo1 - Syncope Near bo1 Followup: bo1 - With: Raji Pat MD - When: Upon discharge from the Emergency Department - Reason: Recheck today's complaints, Continuance of care Discharge Instructions: - Discharge Summary Sheet bo1 - Atrial Fibrillation bo1 - Near-Syncope, [id number] bo1 Forms: - Medication Reconciliation Form bo1 - Antibiotic Education bo1 - Prescription Opioid Use bo1 - Patient Portal Instructions bo1 - Leadership Thank You Letter bo1 Signatures: Dispatcher [employer] Mckenzie Kendall RN RN aa5 Mary Mota RN RN [facility], MD OLIVIA Abbott bo1
[2024-11-19 15:34] VITALS: TEMP 98.3
[2024-11-19 15:38] VITALS: BP 126/83; O2SAT 98
== END 2024-11-19 13:44 | disposition home or self-care (01) ==
LOC: ER 10:21
DX: I48.20 Chronic atrial fibrillation, unspecified (principal); Z79.01 Long term (current) use of anticoagulants; G30.9 Alzheimer's disease, unspecified; F02.80 Dementia in other diseases classified elsewhere, unspecified severity, without behavioral disturbance, psychotic disturbance, mood disturbance, and anxiety; Z86.73 Personal history of transient ischemic attack (TIA), and cerebral infarction without residual deficits
CPT/HCPCS: 36415; 71045; 80048; 84484; 85025; 93005; 99285